=== PATIENT | female | born 1975 | race Two or more races ===

== ENCOUNTER → 2023-11-14 | Emergency (ER) | payer OTHER ==
[~2023-11-14] VITALS: Ht 162.6 cm; Wt 56.7 kg
[~2023-11-14] MED LIST: ADDERALL 20 MG20 MG; CEFAZOLIN SODIUM 1,000 MG VIAL IM ONE; CEFAZOLIN SODIUM 1,000 MG VIAL ONE; GILTUSS LIQUID237 M1 PO; PERCOCET 5/3251 TAB PO; RESTORIL30 M1; SYMBICORT 16010.2 GM IH; TOBRADEX EYE DR10 ML OP; WELLBUTRIN XL300 MG
== END | disposition home or self-care (01) ==
LOC: ER 09:53
DX: S61.219A Laceration without foreign body of unspecified finger without damage to nail, initial encounter (principal); W45.8XXA Other foreign body or object entering through skin, initial encounter; Y93.89 Activity, other specified; Y92.89 Other specified places as the place of occurrence of the external cause; Y99.8 Other external cause status